=== PATIENT | male | born 1965 | race Caucasian/White ===

== ENCOUNTER 2018-02-23 13:05 | Emergency (ER) | payer OTHER ==
[~2018-02-23] VITALS: Ht 180.3 cm; Wt 85.5 kg
[2018-02-23 13:30] VITALS: BP 126/77
[2018-02-23] MEDS ORDERED: HYDROcodone/acetaminophen 5mg/325mg tablet PO ONE (14:50)
== END 2018-02-23 15:34 | disposition home or self-care (01) ==
LOC: ER 13:06
DX: S05.12XD Contusion of eyeball and orbital tissues, left eye, subsequent encounter (principal); Z60.2 Problems related to living alone; Y04.8XXD Assault by other bodily force, subsequent encounter
CPT/HCPCS: 99282